=== PATIENT | female | born 1995 | race Caucasian/White ===

== ENCOUNTER 2018-07-25 11:25 | Emergency (ER) | payer MEDICAID ==
[~2018-07-25] VITALS: Ht 160 cm; Wt 55.0 kg
[2018-07-25 11:40] VITALS: Ht 160 cm; Wt 55.0 kg
--- NOTE | 2018-07-25 11:54 | ERD ---
ER Documentation Chief Complaint Chief Complaint ALOC, PARANOID FROM HOME BIB MOTHER HPI 23-year-old female brought in by mother with complaint of altered level consciousness. History is taken from the mother as patient is verbally unresponsive. Mother states that her daughter came back last night after hanging out with friends and began visual and auditory hallucinations. In addition mother states that daughter has not been verbally responsive. Mother does not think that the daughter is any acute pain. Mother denies daughter having any kind of psychiatric history or similar episodes in the past. Mother denies daughter having any history of drug use. Denies vomiting, lethargy, fevers. Denies medical problems. Denies allergies. Denies current medications. ROS All systems reviewed and are negative except as per history of present illness. Medications Home Meds No Active Prescriptions or Reported Meds Allergies Allergies: Coded Allergies: No Known Allergy (Unverified , 07/25/18) FmHx Family History: No diabetes, No coronary disease, No other Physical Exam Vitals Vital Signs Date Temp Pulse Resp B/P (MAP) Pulse Ox O2 O2 Flow FiO2 Time Delivery Rate 07/26/18 98 17 107/64 99 Room Air 05:00 (78) 07/25/18 98.4 100 20 105/66 97 Room Air 23:00 (79) 07/25/18 111 20 95/65 (75) 95 Room Air 19:30 07/25/18 98.4 112 20 97/102 96 Room Air 17:17 (100) 07/25/18 98.1 133 30 129/102 99 11:40 (111) Physical Exam Const: Patient is not verbally responsive. Patient is responsive to commands. Head: Atraumatic Eyes: Normal Conjunctiva. Blood pressure was noted and eyes bilaterally. EOMs intact. PERRLA. ENT: Normal External Ears, Nose and Mouth. Neck: Full range of motion. No meningismus. Resp: Clear to auscultation bilaterally Cardio: Regular rate and rhythm, no murmurs Abd: Soft, non tender, non distended. Normal bowel sounds Skin: No petechiae or rashes. No skin lesions noted. No track umana on arms noted. No diaphoresis or pallor. Back: No midline or flank tenderness Ext: No cyanosis, or edema Neur: Awake and alert Psych: Normal Mood and Affect Result Diagram: 07/25/18 1231 07/25/18 1231 Results 24 hrs Laboratory Tests Test 07/25/18 12:31 07/25/18 12:32 White Blood Count 8.4 10^3/ul Red Blood Count 4.96 10^6/ul Hemoglobin 14.8 g/dl Hematocrit 42.6 % Mean Corpuscular Volume 85.9 fl Mean Corpuscular Hemoglobin 29.8 pg Mean Corpuscular Hemoglobin Concent 34.7 g/dl Red Cell Distribution Width 12.4 % Platelet Count 335 10^3/UL Mean Platelet Volume 11.2 fl Immature Granulocytes % 0.500 % Neutrophils % 68.4 % Lymphocytes % 20.9 % Monocytes % 9.4 % Eosinophils % 0.1 % Basophils % 0.7 % Nucleated Red Blood Cells % 0.0 /100WBC Immature Granulocytes # 0.040 10^3/ul Neutrophils # 5.7 10^3/ul Lymphocytes # 1.8 10^3/ul Monocytes # 0.8 10^3/ul Eosinophils # 0.0 10^3/ul Basophils # 0.1 10^3/ul Nucleated Red Blood Cells # 0.0 10^3/ul Urine Color YELLOW Urine Clarity SLIGHTLY CLOUDY Urine pH 9.0 Urine Specific [place] 1.014 Urine Ketones 2+ mg/dL Urine Nitrite NEGATIVE mg/dL Urine Bilirubin NEGATIVE mg/dL Urine Urobilinogen NEGATIVE mg/dL Urine Leukocyte Esterase NEGATIVE Albert/ul Urine Microscopic RBC 0 /HPF Urine Microscopic WBC 1 /HPF Urine Squamous Epithelial Cells FEW /HPF Urine Bacteria FEW /HPF Urine Mucus FEW /HPF Urine Hemoglobin NEGATIVE mg/dL Urine Glucose NEGATIVE mg/dL Urine Total Protein NEGATIVE mg/dl Urine Test NEGATIVE Sodium Level 141 mmol/L Potassium Level 3.3 mmol/L Chloride Level 104 mmol/L Carbon Dioxide Level 16 mmol/L Anion Gap 21 Blood Urea Nitrogen 13 mg/dl Creatinine 0.87 mg/dl Est Glomerular Filtrat Rate mL/min > 60 mL/min Glucose Level 104 mg/dl Calcium Level 10.6 mg/dl Total Bilirubin 1.6 mg/dl Direct Bilirubin 0.00 mg/dl Indirect Bilirubin 1.6 mg/dl Aspartate Amino Transf (AST/SGOT) 22 IU/L Alanine Aminotransferase (ALT/SGPT) 12 IU/L Alkaline Phosphatase 68 IU/L Total Protein 9.4 g/dl Albumin 5.2 g/dl Globulin 4.20 g/dl Albumin/Globulin Ratio 1.23 Salicylates Level < 1.0 mg/dl Urine Opiates Screen Negative Acetaminophen Level < 10.0 ug/ml Urine Barbiturates Negative Urine Amphetamines Screen Positive Urine Benzodiazepines Screen Negative Urine Cocaine Screen Negative Urine Cannabinoids Negative Ethyl Alcohol Level < 10.0 mg/dl Thyroid Stimulating Hormone (TSH) 2.650 MIU/L Current Medications Medications Dose Sig/Cha Start Time Status Last (Trade) Ordered Route PRN Stop Time Admin Dose Reason Admin Lorazepam 0.5 mg ONCE ONCE 07/25/18 DC 07/25/18 (Ativan) IV 12:30 12:39 07/25/18 12:31 Lorazepam 0.5 mg ONCE ONCE 07/25/18 Cancel (Ativan) IV 15:30 07/25/18 15:31 Lorazepam 1 mg ONCE ONCE 07/25/18 DC 07/25/18 (Ativan) IV 15:30 15:15 07/25/18 15:31 Lorazepam 1 mg ONCE STAT 07/25/18 DC 07/25/18 (Ativan) IV 16:46 16:52 07/25/18 16:50 Procedures/MDM DIAGNOSTIC IMAGING REPORT Patient: TRACI SANZ : 1995 Age: 23 Sex: F MR #: [id number] DOS: 07/25/18 1144 Ordering MD: JULIUS HUFF MD Location: E/R Room/Bed: PROCEDURE: CT Brain without contrast. CLINICAL INDICATION: Medical clearance. TECHNIQUE: A CT of the brain without contrast was performed utilizing axial sections from the skull base through the vertex. One or more the following does reduction techniques were utilized: Automated exposure control, adjustment of the mA/ or kV according to patient's size, or use of iterative reconstruction technique. Total exam CTDIvol is 39 MGy and DLP is 634 mGy-cm. DICOM images are available. COMPARISON: None available. FINDINGS: The ventricles and sulci are age-appropriate. There is no intracranial hemorrhage, mass effect or midline shift. No abnormal intra-axial or extra- axial fluid collections are seen. The jane/white matter differentiation is preserved. No acute skull abnormality is noted. The visualized paranasal sinuses are essentially clear. IMPRESSION: 1. No acute intracranial hemorrhage, transcortical infarction or mass effect. RPTAT: HH .Nelson Valera MD, Date Time Electronically viewed and signed by .Nelson Valera MD, on 07/25/2018 13:27 .N/ CC: JULISU HUFF MD [id number] EKG Interpretation: Sinus tachycardia with no elevations, depressions, or abnormal intervals. No signs of acute ischemia. Patient appeared nervous and agitated during the ER course so was given .5mg iv ativan and then second dose of 1mg ativan a couple hours later due to continued non verbal and non violent agitation. Urine drug screen was positive for amphetamine. When questioned regarding lab results, patient was still altered and unable to to give a history of drug use. Mother stated that she did not feel comfortable taking her home and had no knowledge of her drug history, and requested a psychiatric consult. I felt this was appropriate and a telepsychiatry consult was ordered. Post telepsychiatry consult, patient is currently pending placement of hold. I assumed care at 6 AM. I reevaluated the patient including the tele-psych note. Upon my reevaluation, patient continued to be psychotic. After review of the CT scan, lab work including a drug screen, this appears to be amphetamine related. I ordered antipsychotic medications and patient will be maintained under observation until further disposition would be appropriate pending reevaluation of the psychosis. Departure Diagnosis: Primary Impression: Altered level of consciousness Additional Impressions: Psychosis Methamphetamine abuse Condition: EDWIN Parker Jul 25, 2018 11:54 ROSE PETERSEN Jul 26, 2018 06:33
[2018-07-25] MEDS ORDERED: LORAZEPAM 2 MG INJ IV ONE ×3 (12:30→15:30)
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
[2018-07-25] MEDS ORDERED: LORAZEPAM 2 MG INJ IV STA (16:46)
[2018-07-26] MEDS ORDERED: OLANZAPINE 10 MG VIAL IM ONE (06:30)
[2018-07-27 23:53] VITALS: BP 112/72; PULSE 74; RESP 16
== END 2018-07-27 23:56 ==
LOC: E/R 11:25
DX: F15.159 Other stimulant abuse with stimulant-induced psychotic disorder, unspecified (principal); R40.2142 Coma scale, eyes open, spontaneous, at arrival to emergency department; R40.2362 Coma scale, best motor response, obeys commands, at arrival to emergency department; R40.2252 Coma scale, best verbal response, oriented, at arrival to emergency department
CPT/HCPCS: 36415; 70450; 80053; 80307; 81001; 84443; 84703; 85025; 93005; 96372; 96374; 96376; J2060; Z7502; Z7610; 81003